=== PATIENT | female | born 1970 | race Caucasian/White ===

== ENCOUNTER 2017-02-25 14:39 | Emergency (ER) | payer MEDICAID ==
[~2017-02-25] VITALS: Ht 157.5 cm; Wt 63.3 kg
[~2017-02-25 14:39] MED LIST: HYDR-1666; PREN1TAB49
[2017-02-25 14:53] VITALS: Ht 157.5 cm; Wt 63.3 kg
--- NOTE | 2017-02-25 15:04 | ERD ---
ER Documentation Chief Complaint Chief Complaint Complains of hradache x 2 days HPI 46y/o female patient with no significant medical history, presents to the emergency department c/o progressive headache located in the occipital area, that started 2 days ago. pain is dull, rated 7/10, radiated to bilateral shoulders and neck. The symptoms are associated with mild insomnia and stress. Denies fever, chills, N/V/D. No recent history of previous episodes. Treatment attempted: None ROS SYSTEMIC symptoms: no fever, chills, no night sweats, no weight loss EYE symptoms: No blurred vision, no eye discharge OTOLARYNGEAL symptoms: No hearing loss. No ear pain, no sore throat CARDIOVASCULAR symptoms: No chest pain or discomfort, no palpitations. PULMONARY symptoms: No dyspnea, no cough, no wheezing. GASTROINTESTINAL symptoms: No abdominal pain, no nausea, no vomiting, no diarrhea MUSCULOSKELETAL symptoms: No arthralgias, no muscle aches. NEUROLOGY symptoms: No confusion, no syncope, no numbness or tingling. SKIN no rashes Medications Home Meds Active Scripts Hydrocodone/Acetaminophen (Keller 5-325 Tablet) 1 Each Tablet, 1 TAB PO Q8 Y for SEVERE PAIN LEVEL 7-10, #12 TAB Prov:KHURRAM GODINEZ MD 02/25/17 Reported Medications Hydrocodone Bit/Acetaminophen (Vicodin 5/500 Tablet) 1 Tab Tablet 07/14/12 Vits W-Ca,Fe,Fa(<1MG) () 1 Tab Tablet, 1 05/16/11 Allergies Allergies: Coded Allergies: No Known Allergy (Verified , 07/14/12) PMhx/Soc Denies DM, HTN, CAD History of Surgery: Yes (C SECTION , APPENDECTOMY) Anesthesia Reaction: No Hx Neurological Disorder: No Hx Respiratory Disorders: No Hx Cardiac Disorders: No Hx Psychiatric Problems: No Hx Miscellaneous Medical Probl: No Hx Alcohol Use: No Hx Substance Use: No Hx Tobacco Use: No Physical Exam Vitals Vital Signs Date Time Temp Pulse Resp B/P Pulse Ox O2 Delivery O2 Flow Rate FiO2 02/25/17 14:53 98.7 81 20 151/87 98 Physical Exam Patient is in no acute distress, vital signs stable. Alert and fully oriented. EYES: PERRLA, EOMI, Sclera and conjunctiva appear normal. EARS: Canals clear, tympanic membranes WNL THROAT: Normal oropharynx. NECK: Supple, No lymphadenopathy. Full ROM without pain or tenderness. HEART: RRR, no rubs, murmurs, clicks or gallops. LUNGS: Clear to auscultation. ABDOMEN: Soft, non-tender without masses or hepatosplenomegaly. EXTREMITIES: No edema bilaterally. MUSC: Full ROM, no deformity, normal back exam Neuro: No motor or sensory deficit, grossly intact Results 24 hrs Laboratory Tests Test 02/25/17 15:16 Bedside Urine pH (LAB) 6.5 Bedside Urine Protein (LAB) Negative Bedside Urine Glucose (UA) Negative Bedside Urine Ketones (LAB) Negative Bedside Urine Blood Trace-lysed Bedside Urine Nitrite (LAB) Negative Bedside Urine Leukocyte Esterase (L Negative Current Medications Medications (Trade) Dose Ordered Sig/Ambrose Route PRN Reason Start Time Stop Time Status Last Admin Dose Admin Ketorolac Tromethamine (Toradol) 60 mg ONCE STAT IM 02/25/17 15:05 02/25/17 15:10 DC 02/25/17 15:16 Procedures/MDM 46y/o female patient is a healthy, presents to the ED c/o headache for 2 days. Vital signs stable, Physical exam unremarkable, neurovascular exam intact. Differential diagnosis include but not limited to: classical migraine, sinusitis , dehydration, URI, visual problems, tension headache, cluster headaches. Less likely SEED TESTER tumor, CVA, meningitis. Pertinent Data: UA: Normal no evidence of infection Physical examination and clinical presentation consistent most likely with shunt headache. During the ED course the patient received treatment with Toradol IM presenting overall improvement of the symptoms. Results and clinical impression discussed with patient who agrees with management. The patient is stable to be treated outpatient and will be discharged home with a Rx for Keller for 3 days Side effects of prescribed medications (headache, rash, drowsiness, constipation , habituation) were reviewed. If symptoms persist, worsen or new symptoms develop, then patient is instructed to follow-up with the primary care provider. If the patient is unable to see the primary care provider, then return to the ED immediately. Departure Diagnosis: Primary Impression: Tension headache Condition: Stable Patient Instructions: Headache, Tension Additional Instructions: Muchas january por [facility] para carrasquillo servicio. Esperamos que en carrasquillo visita a la karie de emergencia carrasquillo problema medico haya sido solucionado y que se sienta mucho mejor. Para estar seguros que carrasquillo mejoria sigue en proceso, le pedimos el favor de hacer tatianna becca de seguimiento medico con carrasquillo doctor primario en los proximos 2-4 coles. Lleve con usted estos documentos y las medicinas recetadas. Si chinyere sintomas empeoran y no puede benjamin a carrasquillo doctor, por favor regrese a karie de emergencia. En teto que usted no tenga un mdico de atencin primaria: Llame al mdico o clnica comunitaria de referencia que aparece abajo jody las horas de consultorio para hacer tatianna becca para que le vean. CLINICAS: [facility] [phone] [phone] [facility] [phone] [facility] [phone] [place] [id number] [phone] [facility] [phone] KHURRAM SWENSON MD Feb 25, 2017 15:04
[2017-02-25] MEDS ORDERED: KETOROLAC 60 MG INJ IM STA (15:05)
[2017-02-25 15:17] LABS: URINE BLOOD (Dip) POC Trace-lysed (NEGATIVE)
[2017-02-25] MEDS ORDERED: HYDR-906 PO (15:54)
== END 2017-02-25 16:13 | disposition home or self-care (01) ==
LOC: FTE 14:39
DX: G44.209 Tension-type headache, unspecified, not intractable (principal)
CPT/HCPCS: 81003; 96372; J1885; Z7502

== ENCOUNTER 2018-05-13 07:52 | Emergency (ER) | payer MEDICAID ==
[~2018-05-13] VITALS: Ht 154.9 cm; Wt 66.7 kg
[~2018-05-13 07:52] MED LIST changes: +HYDR-4011 PO
[2018-05-13 07:53] VITALS: Ht 154.9 cm; Wt 66.7 kg
--- NOTE | 2018-05-13 08:22 | ERD ---
ER Documentation Chief Complaint Chief Complaint bright red vag bleeding since am, told @ [facility], LMP 04/03/18, HPI 47-year-old female who is approximately 5 weeks present ED with bright red vaginal bleeding since this morning. Patient reports the bleeding is light, she has not yet changed pads. Patient also reports mild pelvic pain. Patient is , LMP 04/03/2018. Denies fever or chills. Denies dysuria. ROS All systems reviewed and are negative except as per history of present illness. Medications Home Meds Active Scripts Acetaminophen* (Tylophen*) 500 Mg Capsule, 1 CAP PO Q6H PRN for PAIN AND OR ELEVATED TEMP, #20 CAP Prov:SUMA LOPEZ SOLDERER FURNACE 05/13/18 Hydrocodone/Acetaminophen ([place] 5-325 Tablet) 1 Each Tablet, 1 TAB PO Q8 PRN for SEVERE PAIN LEVEL 7-10, #12 TAB Prov:KHURRAM GODINEZ MD 02/25/17 Reported Medications Hydrocodone Bit/Acetaminophen (Vicodin 5/500 Tablet) 1 Tab Tablet 07/14/12 Vits W-Ca,Fe,Fa(<1MG) () 1 Tab Tablet, 1 05/16/11 Allergies Allergies: Coded Allergies: No Known Allergy (Verified , 07/14/12) PMhx/Soc History of Surgery: Yes (C SECTION , APPENDECTOMY, cholecysectomy, ) Anesthesia Reaction: No Hx Neurological Disorder: No Hx Respiratory Disorders: No Hx Cardiac Disorders: No Hx Psychiatric Problems: No Hx Miscellaneous Medical Probl: No Hx Alcohol Use: No Hx Substance Use: No Hx Tobacco Use: No Smoking Status: Never smoker Physical Exam Vitals Vital Signs Date Temp Pulse Resp B/P (MAP) Pulse Ox O2 O2 Flow FiO2 Time Delivery Rate 05/13/18 98.6 80 18 152/88 99 07:53 (109) Physical Exam General: Well-developed, well-nourished, conscious and coherent, in no distr ess Skin: Warm and dry without rash, good texture and turgor Head: Normocephalic without evidence of trauma Chest: Normal AP diameter. Good expansion without retractions. Nontender. Lungs are clear to auscultate bilaterally with good tidal volume Heart: Regular rate and rhythm. No murmur, rub, or gallops heard Abdomen: Soft, mild pelvic tenderness without masses, guarding, or rebound. Bowel sounds are active. No hepatosplenomegaly Back: Without spinal or CVA tenderness Extremities: Full range of motion. Good strength bilaterally. No erythema, ecchymosis, or edema. Peripheral pulses are intact. Sensation intact Neuro: Alert and oriented 4, GCS 15. Result Diagram: 05/13/18 0815 Results 24 hrs Laboratory Tests Test 05/13/18 08:15 White Blood Count 12.0 10^3/ul Red Blood Count 4.91 10^6/ul Hemoglobin 14.4 g/dl Hematocrit 42.9 % Mean Corpuscular Volume 87.4 fl Mean Corpuscular Hemoglobin 29.3 pg Mean Corpuscular Hemoglobin Concent 33.6 g/dl Red Cell Distribution Width 12.1 % Platelet Count 323 10^3/UL Mean Platelet Volume 10.1 fl Immature Granulocytes % 0.200 % Neutrophils % 74.3 % Lymphocytes % 17.5 % Monocytes % 5.8 % Eosinophils % 1.7 % Basophils % 0.5 % Nucleated Red Blood Cells % 0.0 /100WBC Immature Granulocytes # 0.030 10^3/ul Neutrophils # 8.9 10^3/ul Lymphocytes # 2.1 10^3/ul Monocytes # 0.7 10^3/ul Eosinophils # 0.2 10^3/ul Basophils # 0.1 10^3/ul Nucleated Red Blood Cells # 0.0 10^3/ul Urine Color YELLOW Urine Clarity CLEAR Urine pH 6.0 Urine Specific Eldridge 1.008 Urine Ketones NEGATIVE mg/dL Urine Nitrite NEGATIVE mg/dL Urine Bilirubin NEGATIVE mg/dL Urine Urobilinogen NEGATIVE mg/dL Urine Leukocyte Esterase NEGATIVE Lala/ul Urine Microscopic RBC 16 /HPF Urine Microscopic WBC 1 /HPF Urine Squamous Epithelial Cells FEW /HPF Urine Bacteria FEW /HPF Urine Hemoglobin 3+ mg/dL Urine Glucose NEGATIVE mg/dL Urine Total Protein NEGATIVE mg/dl Beta HCG, Quantitative 101.0 mIU/ml PROCEDURE: US OB. CLINICAL INDICATION: First trimester hemorrhage. Threatened . TECHNIQUE: Transabdominal views of the pelvis are available for review. COMPARISON: No prior studies are available for comparison. FINDINGS: The uterus is retroverted. It measures 8.3 x 4.6 x 4.8 cm. Uterus is of normal contour and echogenicity. Endometrial stripe complex is well demarcated measuring 3.2 mm in diameter. No intrauterine gestation sac is present. There is trace fluid in the lower uterine segment extending into the cervix. There is no hyperemia of the endometrial lining. The right ovary measures 2.6 x 1.6 x 2.3 centimeter. The left ovary measures 2.8 x 1.6 x 2.2 centimeter. No adnexal masses seen. There is normal arterial flow to both ovaries on color-flow Doppler imaging. There is no free fluid in the pelvis. No solid pelvic mass is present. IMPRESSION: No intrauterine gestation visualized. Small volume fluid lower uterine segment and cervical canal. Question in progress. Viable very early intrauterine or ectopic cannot be ruled out. Correlation with quantitative serial beta HCG levels is therefore recommended. Normal ovaries. .Farhat Segal MD, MD Date Time Electronically viewed and signed by .Farhat Segal MD, MD on 05/13/2018 0 8:45 .A/ CC: SUMA LOPEZ NP Procedures/MDM ED course: CBC: No evidence of severe anemia or infection. Beta hC.0 UA: No evidence of urinary tract infection. Blood type: O-. RhoGAM is indicated for patient. OB ultrasound: No intrauterine gestation visualized on ultrasound, as well fluid in the lower uterine segment and cervical canal. Medical decision-makin weeks patient presented ED with vaginal bleeding times 1 day. The ultrasound results and low beta hCG quant are highly suggestive for miscarriage. However, I cannot completely rule out the possibility of ectopic . Patient advised to follow-up with her OB clinic in 2 days for repeat beta hCG quant. Patient's blood type is O-, RhoGam is given to the patient in the ED. Spontaneous and ectopic instructions and return precautions provided. Medications on discharge: Tylenol. Follow-up: Primary care provider in 2 days or return to ED if worse. Departure Diagnosis: Primary Impression: Vaginal bleeding in patient at less than 20 weeks ges... Condition: Stable SUMA LOPEZ NP May 13, 2018 08:22
[2018-05-13] MEDS ORDERED: ACET500C5 PO (10:03)
[2018-05-13 10:40] VITALS: BP 117/68; PULSE 73; RESP 17
== END 2018-05-13 10:41 | disposition home or self-care (01) ==
LOC: FTE 07:52
DX: O20.9 Hemorrhage in early pregnancy, unspecified (principal); R10.2 Pelvic and perineal pain; Z3A.01 Less than 8 weeks gestation of pregnancy
CPT/HCPCS: 36415; 76801; 81001; 84702; 85025; 86900; 86901; J2790; Z7502